=== PATIENT | male | born 1945 | race Caucasian/White ===

== ENCOUNTER 2022-10-08 13:35 | Outpatient (CLI) | payer MEDICARE | END 2022-10-08 13:36 | disposition home or self-care (01) | LOC: CSHMRI 13:35 | PROVIDERS: ATTEND Urology | DX: N28.1 Cyst of kidney, acquired (principal); K86.89 Other specified diseases of pancreas | CPT/HCPCS: 74183; 82565 ==

== ENCOUNTER 2023-01-25 16:10 | Emergency (ER) | payer MEDICARE ==
[2023-01-25] MEDS ORDERED: cefTRIAXone\\ROCEPHIN 1 GM VIAL ONE (17:05)
[2023-01-25] MEDS ORDERED: Lidocaine 1% (PF) 30 ML VIAL ONE (17:05)
== END 2023-01-25 17:40 | disposition home or self-care (01) ==
LOC: CSHERS 16:10
DX: A46 Erysipelas (principal); K21.9 Gastro-esophageal reflux disease without esophagitis; I10 Essential (primary) hypertension; E78.00 Pure hypercholesterolemia, unspecified; Z85.46 Personal history of malignant neoplasm of prostate
CPT/HCPCS: 96372; 99283; J0696; J2001

== ENCOUNTER 2023-05-03 13:22 | Emergency (ER) | payer MEDICARE ==
[2023-05-03 13:56] LABS: Calcium, Ionized (venous) 1.01 mmol/L (1.16-1.32); Chloride (VBG) 97 mmol/L (98-106); Hematocrit-VBG 31 % (42.0-52.0); Hemoglobin (Hb) 10.7 g/dL (12.6-17.4); Potassium (VBG) 3.29 mmol/L (3.70-5.30); Puncture Site Other Site; RapidComm Collect By CBN; pH (venous) 7.516 (7.32-7.43)
[2023-05-03 14:03] LABS: #Basophils 0.1 10x3/uL (0.0-0.2); #Eosinphils 0.1 10x3/uL (0.0-0.5); #Monocytes 0.4 10x3/uL (0.0-1.1); %Basophils 1.4 % (0.0-2.0); %Eosinophils 1.6 % (0.0-6.0); %Monocytes 6.1 % (0.0-10.0); %Neutrophils 80.4 % (40.0-75.0); Hemoglobin 9.5 g/dL (13.5-17.5); Mean Corpuscular HGB CONC 34.1 g/dL (32.0-36.0); Mean Corpuscular Hemoglobin 30.2 pg (27.0-33.0); Mean Corpuscular Volume 88.6 fl (81.2-95.1); Mean Platelet Volume 10.3 fl (7.4-10.4); Platelet Count 181 10x3/uL (150-450); RBC Distribution Width 13.3 % (11.5-14.5); Red Blood Cell (RBC) Count 3.15 10x6/uL (4.32-5.72); White Blood Cell (WBC) Count 6.3 10x3/uL (3.5-10.5)
[2023-05-03 14:16] LABS: ALT (SGPT) 23 U/L (8-55); AST (SGOT) 26 U/L (5-34); Albumin 3.6 g/dL (3.4-4.8); Alkaline Phosphatase 76 U/L (40-110); Anion Gap 16 mmol/L (10-20); BUN (Urea Nitrogen) 49 mg/dL (8.4-25.7); Bilirubin, Total 0.5 mg/dL (0.2-1.2); Calc. Creatinine Clearance 0 mL/min (70-130); Calcium 8.6 mg/dL (7.8-10.44); Carbon Dioxide 20 mmol/L (23-31); Chloride 98 mmol/L (98-107); Estimated GFR 34; Globulin 2.6 g/dL (2.4-3.5); Glucose 137 mg/dL (83-110); Potassium 3.3 mmol/L (3.5-5.1); Protein, Total 6.2 g/dL (5.8-8.1); Sodium 131 mmol/L (136-145)
[2023-05-03 14:41] LABS: CKMB 2.2 ng/mL (0-6.6)
[2023-05-03] MEDS ORDERED: Aspirin Chewable 81 MG TAB ONE (15:19)
[2023-05-03] MEDS ORDERED: Potassium Chloride 20 MEQ TAB ONE (15:20)
[2023-05-03] MEDS ORDERED: Furosemide 100 MG/10 ML VIAL ONE (16:13)
[2023-05-03] MEDS ORDERED: Nitroglycerin 2% Ointment 1 INCH/1 GM Packet ONE (16:13)
== END 2023-05-03 18:02 | disposition short-term general hospital (02) ==
LOC: CSHERS 13:22
DX: I35.0 Nonrheumatic aortic (valve) stenosis (principal); E87.70 Fluid overload, unspecified; K21.9 Gastro-esophageal reflux disease without esophagitis; E78.5 Hyperlipidemia, unspecified; I10 Essential (primary) hypertension
CPT/HCPCS: 71045; 80053; 82553; 82805; 83880; 84484; 85025; 93005; 96374; J1940

== ENCOUNTER 2023-09-06 09:03 | Emergency (ER) | payer MEDICARE ==
[2023-09-06 10:12] LABS: #Basophils 0.1 10x3/uL (0.0-0.2); #Eosinphils 0.1 10x3/uL (0.0-0.5); #Monocytes 0.4 10x3/uL (0.0-1.1); #Neutrophils 6.6 10x3/uL (1.5-8.4); %Basophils 0.8 % (0.0-2.0); %Eosinophils 1.7 % (0.0-6.0); %Lymphocytes 7.1 % (18.0-47.0); %Monocytes 5.4 % (0.0-10.0); %Neutrophils 84.7 % (40.0-75.0); Hematocrit 33.2 % (38.8-50.0); Mean Corpuscular HGB CONC 33.1 g/dL (32.0-36.0); Mean Corpuscular Hemoglobin 28.9 pg (27.0-33.0); Mean Corpuscular Volume 86.2 fl (81.2-95.1); Platelet Count 122 10x3/uL (150-450); RBC Distribution Width 13.7 % (11.5-14.5); Red Blood Cell (RBC) Count 3.81 10x6/uL (4.32-5.72); White Blood Cell (WBC) Count 7.8 10x3/uL (3.5-10.5)
[2023-09-06 10:14] LABS: Mean Platelet Volume 10.5 fl (7.4-10.4)
[2023-09-06 10:17] LABS: ALT (SGPT) 11 U/L (8-55); AST (SGOT) 16 U/L (5-34); Albumin 3.8 g/dL (3.4-4.8); Alkaline Phosphatase 97 U/L (40-110); Anion Gap 14 mmol/L (10-20); BUN (Urea Nitrogen) 36 mg/dL (8.4-25.7); Bilirubin, Total 0.3 mg/dL (0.2-1.2); Calc. Creatinine Clearance 0 mL/min (70-130); Calcium 9.2 mg/dL (7.8-10.44); Carbon Dioxide 18 mmol/L (23-31); Chloride 109 mmol/L (98-107); Estimated GFR 44; Globulin 3.4 g/dL (2.4-3.5); Glucose 165 mg/dL (83-110); Potassium 4.2 mmol/L (3.5-5.1); Protein, Total 7.2 g/dL (5.8-8.1); Sodium 137 mmol/L (136-145)
[2023-09-06 10:23] LABS: Troponin I 0.018 ng/mL (< 0.028)
[2023-09-06 13:17] LABS: Troponin I Less than 0.010 ng/mL (< 0.028)
[2023-09-06] MEDS ORDERED: Morphine 2 MG/ML VIAL ONE (13:36)
[2023-09-06] MEDS ORDERED: fentaNYL 50 mcg/mL 1 mL Vial ONE (14:19)
== END 2023-09-06 15:28 | disposition home or self-care (01) ==
LOC: CSHERS 09:03
DX: R07.89 Other chest pain (principal); I10 Essential (primary) hypertension
CPT/HCPCS: 71045; 71275; 74174; 80053; 83880; 84484 ×2; 85025; 93005; J3010; 36415; 96374; 96375; J2272

== ENCOUNTER 2025-08-10 08:31 | Emergency (ER) | payer MEDICARE ==
[2025-08-10 09:27] LABS: #Basophils 0.03 10x3/uL (0.0-0.2); #Eosinophils 0.04 10x3/uL (0.0-0.5); #Monocytes 0.76 10x3/uL (0.0-1.1); #Neutrophils 7.88 10x3/uL (1.5-8.4); %Basophils 0.3 % (0.0-2.0); %Eosinophils 0.4 % (0.0-6.0); %Lymphocytes 4.6 % (18.0-47.0); %Monocytes 8.3 % (0.0-10.0); %Neutrophils 85.6 % (40.0-75.0); Hematocrit 25.4 % (38.8-50.0); Hemoglobin 8.6 g/dL (13.5-17.5); Mean Corpuscular Hemoglobin 28.9 pg (27.0-33.0); Mean Corpuscular Volume 85.2 fL (81.2-95.1); Platelet Count 154 10x3/uL (150-450); Red Blood Cell (RBC) Count 2.98 10x6/uL (4.32-5.72); White Blood Cell (WBC) Count 9.20 10x3/uL (3.5-10.5)
[2025-08-10 09:36] LABS: D-Dimer Test 1.98 mcg/mL (0.19-0.50); INR-International Normal Ratio 1.1; PTT 29.2 sec (22.0-33.0); Prothrombin Time 11.6 sec (9.5-12.1)
[2025-08-10 09:42] LABS: ALT (SGPT) 17 U/L (Less than 45); AST (SGOT) 16 U/L (11-34); Albumin 3.1 g/dL (3.1-4.5); Alkaline Phosphatase 63 U/L (40-110); Anion Gap 14 mmol/L (10-20); BUN (Urea Nitrogen) 42 mg/dL (8.4-25.7); Bilirubin, Total 0.5 mg/dL (0.3-1.2); Calc. Creatinine Clearance 0 mL/min (70-130); Calcium 9.3 mg/dL (7.8-10.44); Carbon Dioxide 21 mmol/L (23-31); Chloride 96 mmol/L (98-107); Globulin 3.7 g/dL (2.4-3.5); Glucose 123 mg/dL (83-110); Magnesium 1.7 mg/dL (1.6-2.6); Potassium 3.3 mmol/L (3.5-5.1); Sodium 128 mmol/L (136-145)
[2025-08-10 09:47] LABS: Troponin I 0.015 ng/mL (< 0.028)
[2025-08-10 11:19] LABS: Glucose, Urine (Dipstick) Negative (Negative); Leukocyte Negative (Negative); Protein, Urine (Dipstick) Negative (Neg-Trace); Specific Gravity, Urine Less/Equal 1.005 (1.005-1.030)
[2025-08-10 11:57] LABS: Bacteria/HPF None Seen HPF (None Seen); CAUTI Indications for Culture Alt mental st,lethar; RBC/HPF 0-3 HPF (0-3); WBC/HPF None Seen HPF (0-3)
[2025-08-10 11:58] LABS: Urine Culture Reflex No No
[2025-08-10] MEDS ORDERED: Iopamidol 370 76% 100 ML VIAL ONE (13:38)
== END 2025-08-10 12:20 | disposition home or self-care (01) ==
LOC: CSHERS 08:31
DX: E86.0 Dehydration (principal); R29.700 NIHSS score 0; I10 Essential (primary) hypertension
CPT/HCPCS: 71045; 71275; 80053; 81001; 83735; 83880; 84484; 85025; 85379; 85610; 85730; 93005; 94760; Q9967